=== PATIENT | female | born 1950 | race Caucasian/White ===

== ENCOUNTER 2019-03-09 13:35 | Observation (INO) ==
[2019-03-09 14:40] LABS: Basophils # 0.1 10*3/uL (0.0-0.2); Basophils % 0.9 % (0.0-0.8); Eosinophils # 0.1 10*3/uL (0.0-0.87); Eosinophils % 2.4 % (0.00-10.9); Hematocrit 41.4 VOL% (35.7-47.0); Hemoglobin 13.3 GM/DL (12.0-16.0); Immature Granulocytes % 0.3 %; Immature Granulocytes Absolute 0.02 #; Lymphocytes # 2.3 10*3/uL (1.4-4.0); Lymphocytes % 40.5 % (21.3-54.2); Mean Corpuscular HGB Conc 32.1 GM/DL (32-36); Mean Corpuscular Volume 91.6 FL (87-102); Mean Platelet Volume 9.4 FL (9.6-12.0); Neutrophils % 50.9 % (38.7-73.9); Platelet Count 219 T/CUMM (130-400); Red Blood Count 4.52 MC/CUMM (3.8-5.5); Red Cell Distribution Width 13.4 % (9.3-17.3); White Blood Count 5.8 T/CUMM (4-12)
[2019-03-09 15:10] LABS: Alanine Aminotransferase 23 U/L (13-56); Albumin 3.3 G/DL (3.4-5.0); Alkaline Phosphatase 79 U/L (45-117); Aspartate Amino Transferase 34 U/L (0-37); Blood Urea Nitrogen 18 MG/DL (7-18); Calcium 8.6 MG/DL (8.5-10.1); Estimated Glom Filtration Rate 53 ML/MIN; Glucose 113 MG/DL (74-106); Osmolality,Calculated 277.7 MOS/KG (273-304); Total Protein 7.8 G/DL (6.4-8.3); Troponin I < 0.015 NG/ML (0.00-0.045)
[2019-03-09] MEDS ORDERED: ENOXAPARIN 100 MG/ML SYRINGE SUBCUT STA (16:06)
[2019-03-09] MEDS ORDERED: ACETAMINOPHEN 325 MG TABLET PO PRN (17:04)
[2019-03-09] MEDS ORDERED: ONDANSETRON 4 MG/2 ML VIAL IV PRN (17:04)
[2019-03-09] MEDS ORDERED: DEXTROSE 10% 250 ML BAG IV PRN (17:42)
[2019-03-09] MEDS ORDERED: GLUCAGON 1 MG VIAL IM PRN (17:42)
[2019-03-09] MEDS ORDERED: INFLUENZA VIRUS VACCINE 0.5 ML SYRINGE IM ONE (19:23)
[2019-03-09] MEDS ORDERED: ALUM/MAG/SIMETH/LIDO VISC 1:1 30 ML BOTTLE PO ONE (20:18)
[2019-03-09] MEDS: ACETAMINOPHEN 325 MG TABLET PO SCH (21:27)
[2019-03-09] MEDS: levETIRAcetam 500 MG TABLET PO SCH (21:27)
[2019-03-09] MEDS: GABAPENTIN 600 MG TABLET PO SCH (21:27)
[2019-03-09] MEDS: INSULIN LISPRO 100 UNIT/ML SUBCUT SCH (22:30)
[2019-03-10 04:20] LABS: Apearance,Urine CLEAR (Clear); Bilirubin,Urine Negative (Negative); Blood, Urine Negative (Negative); Glucose,Urine (UA) Negative (Negative); Ketones,Urine Negative (Negative); Nitrite,Urine Negative (Negative); Protein,Urine Negative; RBC,Urine <1 /HPF (0-4); Squamous Epithelial Cell,Urine Occasional /HPF (0-10); Urine Color Yellow (Yellow); Urine Specific Gravity 1.006 (1.001-1.035); Urine Urobilinogen < 2.0 EU/DL (0.2-1.0); WBC,Urine <1 /HPF (0-6)
[2019-03-10] MEDS: LEVOTHYROXINE 137 MCG TABLET PO SCH (06:36)
[2019-03-10 06:52] LABS: Basophils % 0.9 % (0.0-0.8); Eosinophils # 0.1 10*3/uL (0.0-0.87); Eosinophils % 1.6 % (0.00-10.9); Hemoglobin 12.3 GM/DL (12.0-16.0); Immature Granulocytes % 0.2 %; Immature Granulocytes Absolute 0.01 #; Lymphocytes # 1.3 10*3/uL (1.4-4.0); Lymphocytes % 28.6 % (21.3-54.2); Mean Corpuscular HGB Conc 32.4 GM/DL (32-36); Mean Corpuscular Volume 90.9 FL (87-102); Mean Platelet Volume 10.1 FL (9.6-12.0); Monocytes % 5.2 % (1.7-12.7); Neutrophils % 63.5 % (38.7-73.9); Platelet Count 177 T/CUMM (130-400); Red Blood Count 4.18 MC/CUMM (3.8-5.5); Red Cell Distribution Width 13.4 % (9.3-17.3); White Blood Count 4.4 T/CUMM (4-12)
[2019-03-10 07:09] LABS: Troponin I < 0.015 NG/ML (0.00-0.045)
[2019-03-10] MEDS: INSULIN LISPRO 100 UNIT/ML SUBCUT SCH ×4 (09:03→21:01)
[2019-03-10] MEDS: levETIRAcetam 500 MG TABLET PO SCH ×2 (09:06→21:01)
[2019-03-10] MEDS: PANTOPRAZOLE 40 MG TABLET PO SCH (09:07)
[2019-03-10] MEDS: FUROSEMIDE 80 MG TABLET PO SCH (09:07)
[2019-03-10] MEDS: ASPIRIN EC 81 MG TABLET PO SCH (09:07)
[2019-03-10] MEDS: GABAPENTIN 600 MG TABLET PO SCH ×3 (09:07→21:01)
[2019-03-10] MEDS: ACETAMINOPHEN 325 MG TABLET PO SCH ×2 (09:08→21:02)
[2019-03-10] MEDS: CLOPIDOGREL 75 MG TABLET PO SCH (09:09)
[2019-03-10] MEDS ORDERED: METOPROLOL TARTRATE 25 MG TABLET PO SCH (09:18)
[2019-03-10] MEDS ORDERED: hydrALAZINE 20 MG/1 ML VIAL IV PRN (13:41)
[2019-03-10] MEDS: LISINOPRIL 5 MG TABLET PO SCH (14:07)
[2019-03-11 04:46] LABS: Basophils % 0.4 % (0.0-0.8); Eosinophils # 0.1 10*3/uL (0.0-0.87); Eosinophils % 1.4 % (0.00-10.9); Hematocrit 34.3 VOL% (35.7-47.0); Hemoglobin 11.2 GM/DL (12.0-16.0); Immature Granulocytes % 0.4 %; Immature Granulocytes Absolute 0.02 #; Lymphocytes % 35.3 % (21.3-54.2); Mean Corpuscular HGB Conc 32.7 GM/DL (32-36); Mean Corpuscular Volume 89.8 FL (87-102); Mean Platelet Volume 9.6 FL (9.6-12.0); Monocytes % 7.2 % (1.7-12.7); Neutrophils % 55.3 % (38.7-73.9); Platelet Count 182 T/CUMM (130-400); Red Blood Count 3.82 MC/CUMM (3.8-5.5); Red Cell Distribution Width 13.6 % (9.3-17.3); White Blood Count 5.7 T/CUMM (4-12)
[2019-03-11 05:20] LABS: Albumin 2.9 G/DL (3.4-5.0); Calcium 8.1 MG/DL (8.5-10.1); Total Protein 6.6 G/DL (6.4-8.3)
[2019-03-11] MEDS: LEVOTHYROXINE 137 MCG TABLET PO SCH (05:57)
[2019-03-11] MEDS: INSULIN LISPRO 100 UNIT/ML SUBCUT SCH ×2 (08:41→12:00)
[2019-03-11] MEDS: LISINOPRIL 5 MG TABLET PO SCH (08:56)
[2019-03-11] MEDS: FUROSEMIDE 80 MG TABLET PO SCH (08:56)
[2019-03-11] MEDS: ACETAMINOPHEN 325 MG TABLET PO SCH (08:56)
[2019-03-11] MEDS: GABAPENTIN 600 MG TABLET PO SCH (08:56)
[2019-03-11] MEDS: CLOPIDOGREL 75 MG TABLET PO SCH (08:56)
[2019-03-11] MEDS: ASPIRIN EC 81 MG TABLET PO SCH (08:56)
[2019-03-11] MEDS: PANTOPRAZOLE 40 MG TABLET PO SCH (08:57)
[2019-03-11] MEDS: levETIRAcetam 500 MG TABLET PO SCH (08:57)
[2019-03-11 12:47] VITALS: BP 165/78
== END 2019-03-11 13:42 | disposition home or self-care (01) ==
LOC: N.EDINP 13:35 → N.ED 13:35 → MERGE 17:03 → SUATTDRO 17:03 → N.TELES 18:23
PROVIDERS: ADMIT Internal Medicine; ATTEND Internal Medicine

== ENCOUNTER 2019-03-20 06:51 | Inpatient (IN) ==
[2019-03-09 09:54] LABS: Basophils % 0.7 % (0.0-0.8); Eosinophils # 0.1 10*3/uL (0.0-0.87); Eosinophils % 1.7 % (0.00-10.9); Hematocrit 35.3 VOL% (35.7-47.0); Hemoglobin 11.2 GM/DL (12.0-16.0); Immature Granulocytes % 0.2 %; Immature Granulocytes Absolute 0.01 #; Lymphocytes # 1.5 10*3/uL (1.4-4.0); Lymphocytes % 37.7 % (21.3-54.2); Mean Corpuscular HGB Conc 31.7 GM/DL (32-36); Mean Corpuscular Volume 91.5 FL (87-102); Mean Platelet Volume 9.6 FL (9.6-12.0); Monocytes % 6.7 % (1.7-12.7); Platelet Count 183 T/CUMM (130-400); Red Blood Count 3.86 MC/CUMM (3.8-5.5); Red Cell Distribution Width 13.6 % (9.3-17.3); White Blood Count 4.1 T/CUMM (4-12)
[2019-03-09 10:10] LABS: Bilirubin,Total 0.4 MG/DL (0.2-1.0); Calcium 8.4 MG/DL (8.5-10.1); Osmolality,Calculated 281.5 MOS/KG (273-304); Total Protein 7.1 G/DL (6.4-8.3)
[~2019-03-20 06:51] MED LIST: ceFAZolin 1,000 MG in SYRINGE 1 EACH IV ONE
[2019-03-20] MEDS ORDERED: HEPARIN 5,000 UNIT/1 ML VIAL ONE (08:03)
[2019-03-20] MEDS ORDERED: LIDOCAINE 1% 20 ML VIAL ONE (08:03)
[2019-04-03] MEDS ORDERED: LACTATED RINGERS 1,000 ML IV SCH (06:30)
[2019-04-03] MEDS ORDERED: HEPARIN/NACL 0.9% 2 UNITS/ML 500 ML IV ONE (06:52)
[2019-04-03] MEDS ORDERED: HEPARIN 10,000 UNIT/10 ML VIAL ONE (06:52)
[2019-04-03] MEDS ORDERED: PROTAMINE SULFATE 50 MG/5 ML VIAL IV ONE (06:52)
[2019-04-03] MEDS ORDERED: LIDOCAINE 1% 20 ML VIAL ONE (08:10)
[2019-04-03] MEDS ORDERED: HEPARIN 5,000 UNIT/1 ML VIAL ONE (08:10)
[2019-04-03] MEDS ORDERED: GLUCAGON 1 MG VIAL IM PRN (10:59)
[2019-04-03] MEDS ORDERED: NALOXONE 0.4 MG/ML VIAL IV PRN (10:59)
[2019-04-03] MEDS ORDERED: HYDROmorphone 2 MG/1 ML VIAL IV PRN (10:59)
[2019-04-03] MEDS ORDERED: oxyCODONE/ACETAMINOPHEN 5-325 MG TABLET PO PRN (10:59)
[2019-04-03] MEDS ORDERED: DEXTROSE 10% 25 GM/250 ML BAG IV PRN (10:59)
[2019-04-03] MEDS ORDERED: NITROPRUSSIDE 100 MG in DEXTROSE 5% 250 ML IV SCH (11:00)
[2019-04-03] MEDS ORDERED: PHENYLEPHRINE DRIP 40 MG/250 ML PREMIX IV SCH (11:00)
[2019-04-03] MEDS ORDERED: tiZANidine 4 MG TABLET PO PRN (11:04)
[2019-04-03] MEDS ORDERED: traZODone 50 MG TABLET PO PRN (11:04)
[2019-04-03] MEDS ORDERED: ONDANSETRON 4 MG TABLET PO PRN ×2 (11:04→13:30)
[2019-04-03] MEDS ORDERED: diphenhydrAMINE CAP 25 MG CAPSULE PO PRN (11:04)
[2019-04-03] MEDS: LACTATED RINGERS 1,000 ML IV SCH ×2 (11:23→21:46)
[2019-04-03] MEDS ORDERED: PHENOL 1.4% THROAT SPRAY 177 ML BOTTLE PO PRN (12:03)
[2019-04-03] MEDS: oxyCODONE/ACETAMINOPHEN 5-325 MG TABLET PO PRN (12:07)
[2019-04-03] MEDS ORDERED: PNEUMOCOCCAL VACCINE (13 VALENT) 0.5 ML SYRINGE IM ONE (12:46)
[2019-04-03] MEDS: INSULIN LISPRO 100 UNIT/ML SUBCUT SCH ×4 (13:10→21:32)
[2019-04-03] MEDS: HYDROmorphone 2 MG/1 ML VIAL IV PRN ×2 (14:19→21:30)
[2019-04-03] MEDS: GABAPENTIN 600 MG TABLET PO SCH ×2 (14:20→21:27)
[2019-04-03 17:47] LABS: Apearance,Urine CLEAR (Clear); Bilirubin,Urine Negative (Negative); Blood, Urine Negative (Negative); Glucose,Urine (UA) Negative (Negative); Hyaline Casts,Urine 22 /LPF (0-3); Ketones,Urine Negative (Negative); Mucus,Urine Occasional /LPF (Occasional); Nitrite,Urine Negative (Negative); Protein,Urine Negative; RBC,Urine <1 /HPF (0-4); Squamous Epithelial Cell,Urine Occasional /HPF (0-10); Urine Color Yellow (Yellow); Urine Specific Gravity 1.016 (1.001-1.035); Urine Urobilinogen < 2.0 EU/DL (0.2-1.0); WBC,Urine <1 /HPF (0-6)
[2019-04-03] MEDS: levETIRAcetam 250 MG TABLET PO SCH (21:27)
[2019-04-03] MEDS: ATORVASTATIN 40 MG TABLET PO SCH (21:29)
[2019-04-03] MEDS: OXcarbazepine 300 MG TABLET PO SCH (21:35)
[2019-04-04] MEDS: ONDANSETRON 4 MG/2 ML VIAL IV PRN ×2 (06:00→16:20)
[2019-04-04] MEDS: LACTATED RINGERS 1,000 ML IV SCH (07:37)
[2019-04-04] MEDS: HYDROmorphone 2 MG/1 ML VIAL IV PRN (08:18)
[2019-04-04] MEDS: INSULIN LISPRO 100 UNIT/ML SUBCUT SCH ×4 (08:30→21:23)
[2019-04-04] MEDS: INSULIN GLARGINE 100 UNIT/ML SUBCUT SCH (08:30)
[2019-04-04] MEDS ORDERED: PANTOPRAZOLE 40 MG TABLET PO SCH (09:00)
[2019-04-04] MEDS ORDERED: CLOPIDOGREL 75 MG TABLET PO SCH (09:00)
[2019-04-04] MEDS: LEVOTHYROXINE 137 MCG TABLET PO SCH (09:42)
[2019-04-04] MEDS: PANTOPRAZOLE 20 MG TABLET PO SCH (09:42)
[2019-04-04] MEDS: FUROSEMIDE 80 MG TABLET PO SCH (09:42)
[2019-04-04] MEDS: GABAPENTIN 600 MG TABLET PO SCH ×3 (09:42→21:23)
[2019-04-04] MEDS: ESCITALOPRAM 10 MG TABLET PO SCH (09:42)
[2019-04-04] MEDS: levETIRAcetam 250 MG TABLET PO SCH ×2 (09:42→21:23)
[2019-04-04] MEDS: CLOPIDOGREL 75 MG TABLET PO SCH (09:42)
[2019-04-04] MEDS: OXcarbazepine 300 MG TABLET PO SCH ×2 (09:43→21:24)
[2019-04-04] MEDS: LINACLOTIDE 145 MCG CAPSULE PO SCH (09:45)
[2019-04-04] MEDS: lisinopriL 5 MG TABLET PO SCH (09:50)
[2019-04-04] MEDS ORDERED: oxyCODONE/ACETAMINOPHEN 5-325 MG TABLET PO PRN (10:46)
[2019-04-04] MEDS ORDERED: PNEUMOCOCCAL VACCINE (13 VALENT) 0.5 ML SYRINGE IM ONE (10:50)
[2019-04-04] MEDS: CARIPRAZINE 1.5 MG PO SCH (11:50)
[2019-04-04] MEDS: oxyCODONE/ACETAMINOPHEN 5-325 MG TABLET PO PRN (16:21)
[2019-04-04] MEDS: ATORVASTATIN 40 MG TABLET PO SCH (21:24)
[2019-04-05] MEDS: ONDANSETRON 4 MG/2 ML VIAL IV PRN ×2 (03:33→10:12)
[2019-04-05] MEDS: FUROSEMIDE 80 MG TABLET PO SCH (09:43)
[2019-04-05] MEDS: CLOPIDOGREL 75 MG TABLET PO SCH (09:43)
[2019-04-05] MEDS: ESCITALOPRAM 10 MG TABLET PO SCH (09:43)
[2019-04-05] MEDS: lisinopriL 5 MG TABLET PO SCH (09:43)
[2019-04-05] MEDS: GABAPENTIN 600 MG TABLET PO SCH ×3 (09:44→21:37)
[2019-04-05] MEDS: PANTOPRAZOLE 20 MG TABLET PO SCH (09:44)
[2019-04-05] MEDS: LEVOTHYROXINE 137 MCG TABLET PO SCH (09:44)
[2019-04-05] MEDS: CARIPRAZINE 1.5 MG PO SCH (09:44)
[2019-04-05] MEDS: LINACLOTIDE 145 MCG CAPSULE PO SCH (09:46)
[2019-04-05] MEDS: INSULIN GLARGINE 100 UNIT/ML SUBCUT SCH (09:46)
[2019-04-05] MEDS: INSULIN LISPRO 100 UNIT/ML SUBCUT SCH ×4 (09:47→23:14)
[2019-04-05] MEDS: OXcarbazepine 300 MG TABLET PO SCH ×2 (09:50→21:36)
[2019-04-05] MEDS: levETIRAcetam 250 MG TABLET PO SCH ×2 (10:55→21:36)
[2019-04-05] MEDS: oxyCODONE/ACETAMINOPHEN 5-325 MG TABLET PO PRN (13:08)
[2019-04-05] MEDS: ATORVASTATIN 40 MG TABLET PO SCH (21:37)
[2019-04-06] MEDS: OXcarbazepine 300 MG TABLET PO SCH ×2 (09:47→21:20)
[2019-04-06] MEDS: levETIRAcetam 250 MG TABLET PO SCH ×2 (09:47→21:20)
[2019-04-06] MEDS: ESCITALOPRAM 10 MG TABLET PO SCH (09:48)
[2019-04-06] MEDS: GABAPENTIN 600 MG TABLET PO SCH ×4 (09:49→21:21)
[2019-04-06] MEDS: PANTOPRAZOLE 20 MG TABLET PO SCH (09:49)
[2019-04-06] MEDS: lisinopriL 5 MG TABLET PO SCH (09:49)
[2019-04-06] MEDS: INSULIN GLARGINE 100 UNIT/ML SUBCUT SCH (09:50)
[2019-04-06] MEDS: LINACLOTIDE 145 MCG CAPSULE PO SCH (09:50)
[2019-04-06] MEDS: FUROSEMIDE 80 MG TABLET PO SCH (09:50)
[2019-04-06] MEDS: INSULIN LISPRO 100 UNIT/ML SUBCUT SCH ×4 (09:52→20:57)
[2019-04-06] MEDS: LEVOTHYROXINE 137 MCG TABLET PO SCH (09:57)
[2019-04-06] MEDS: CLOPIDOGREL 75 MG TABLET PO SCH (09:57)
[2019-04-06] MEDS: CARIPRAZINE 1.5 MG PO SCH (09:58)
[2019-04-06] MEDS ORDERED: TUBERCULIN SKIN TEST 0.1 ML SYRINGE INTRADERM ONE (11:16)
[2019-04-06] MEDS: oxyCODONE/ACETAMINOPHEN 5-325 MG TABLET PO PRN (21:20)
[2019-04-06] MEDS: ATORVASTATIN 40 MG TABLET PO SCH (21:20)
[2019-04-07] MEDS: oxyCODONE/ACETAMINOPHEN 5-325 MG TABLET PO PRN (07:35)
[2019-04-07] MEDS: INSULIN LISPRO 100 UNIT/ML SUBCUT SCH (07:36)
[2019-04-07 08:03] VITALS: BP 119/69
[2019-04-07] MEDS: levETIRAcetam 250 MG TABLET PO SCH (08:25)
[2019-04-07] MEDS: GABAPENTIN 600 MG TABLET PO SCH (08:25)
[2019-04-07] MEDS: ESCITALOPRAM 10 MG TABLET PO SCH (08:25)
[2019-04-07] MEDS: CLOPIDOGREL 75 MG TABLET PO SCH (08:26)
[2019-04-07] MEDS: PANTOPRAZOLE 20 MG TABLET PO SCH (08:26)
[2019-04-07] MEDS: FUROSEMIDE 80 MG TABLET PO SCH (08:26)
[2019-04-07] MEDS: OXcarbazepine 300 MG TABLET PO SCH (08:26)
[2019-04-07] MEDS: lisinopriL 5 MG TABLET PO SCH (08:26)
[2019-04-07] MEDS: LEVOTHYROXINE 137 MCG TABLET PO SCH (08:26)
[2019-04-07] MEDS: LINACLOTIDE 145 MCG CAPSULE PO SCH (08:27)
[2019-04-07] MEDS: INSULIN GLARGINE 100 UNIT/ML SUBCUT SCH (08:27)
[2019-04-07] MEDS: CARIPRAZINE 1.5 MG PO SCH (08:28)
== END 2019-04-07 11:58 | disposition swing bed (61) | DRG 38 ==
LOC: N.SDSINP 06:51 → UNDODISIN 08:44 → N.SDSINP 04-03 06:58 → MERGE 04-03 10:15 → N.ICU 04-03 11:50 → N.3E 04-04 11:14
PROVIDERS: ADMIT Surgery; ATTEND Surgery